=== PATIENT | male | born 1960 | race Caucasian/White ===

== ENCOUNTER 2020-01-24 16:58 | Emergency (ER) | payer MEDICARE ==
[~2020-01-24] VITALS: Ht 177.8 cm; Wt 70.3 kg
[2020-01-24] MEDS ORDERED: SIMV80 PO (18:05)
[2020-01-24] MEDS ORDERED: TRAZ150T57 PO (18:05)
[2020-01-24] MEDS ORDERED: IBUP800 PO (18:05)
[2020-01-24] MEDS ORDERED: LISINOPRIL-HCT1 EACH PO (18:06)
[2020-01-24] MEDS ORDERED: OXYC10TA19 PO (18:06)
[2020-01-24] MEDS ORDERED: GABA300 PO (18:07)
[2020-01-24] MEDS ORDERED: BUPR150ER PO (18:07)
[2020-01-24] MEDS ORDERED: TOCO1000 PO (18:07)
[2020-01-24] MEDS ORDERED: CENTRUM SILVER1 EAC2 PO (18:08)
[2020-01-24] MEDS ORDERED: ONDA4ODT MM (18:47)
== END 2020-01-24 18:55 | disposition home or self-care (01) ==
LOC: ER 16:58
DX: S20.211A Contusion of right front wall of thorax, initial encounter (principal); R11.0 Nausea; F41.9 Anxiety disorder, unspecified; F17.210 Nicotine dependence, cigarettes, uncomplicated; Z79.899 Other long term (current) drug therapy; W01.198A Fall on same level from slipping, tripping and stumbling with subsequent striking against other object, initial encounter; Y93.89 Activity, other specified
CPT/HCPCS: 71101; 99283-25